=== PATIENT | male | born 1930 | race Caucasian/White ===

== ENCOUNTER 2017-09-09 11:41 | Inpatient (IN) | payer MEDICARE ==
[~2017-09-09] VITALS: Ht 162.6 cm; Wt 65.3 kg
[2017-09-09] MEDS ORDERED: METF500T27 PO (11:59)
[2017-09-09] MEDS ORDERED: ATOR40TA PO (12:00)
[2017-09-09] MEDS ORDERED: METO25TA35 PO (12:00)
[2017-09-09] MEDS ORDERED: ASPIRIN 81 MG TABLET CHEW PO ONE ×2 (12:30→14:30)
[2017-09-09] MEDS ORDERED: SODIUM CHLORIDE 0.9% 1,000ML IVBOLUS ONE (12:30)
[2017-09-09] MEDS ORDERED: SODIUM CHLORIDE FLUSH 10ML SYR IVF ONE (12:30)
[2017-09-09 12:47] LABS: BASOPHILS # (AUTO) 0.01 x10^3/uL (0-0.1); BASOPHILS % (AUTO) 0 % (0-1); EOSINOPHILS # (AUTO) 0.03 x10^3/uL (0-0.4); EOSINOPHILS % (AUTO) 1 % (1-7); LYMPHOCYTES % (AUTO) 33 % (22-44); MD NO; MEAN CORPUSCULAR HEMOGLOBIN 35.4 pg (27.5-34.5); MEAN CORPUSCULAR VOLUME 104.3 fL (81-97); MEAN PLATELET VOLUME 7.2 fL (7.4-10.4); MONOCYTES # (AUTO) 0.27 x10^3/uL (0.2-0.8); MONOCYTES % (AUTO) 7 % (2-9); NEUTROPHILS # (AUTO) 2.51 x10^3/uL (1.8-6.8); NEUTROPHILS % (AUTO) 59 % (42-75); PLATELET COUNT 174 x10^3/uL (130-400); RED BLOOD COUNT 2.95 x10^6/uL (4.38-5.82); RED CELL DISTRIBUTION WIDTH 14.1 % (9.4-14.8)
[2017-09-09 12:54] LABS: ALANINE AMINOTRANSFERASE 23 U/L (12-78); ALBUMIN 3.4 g/dL (3.4-5.0); ANION GAP 11 mmol/L (5-15); CALCIUM 8.7 mg/dL (8.5-10.1); CHLORIDE 100 mmol/L (98-107); CREATININE 1.46 mg/dL (0.7-1.3)
[2017-09-09 12:59] LABS: ALKALINE PHOSPHATASE 65 U/L (45-117); BILIRUBIN,TOTAL 0.9 mg/dL (0.2-1.0); TOTAL PROTEIN 7.2 g/dL (6.4-8.2)
[2017-09-09] MEDS ORDERED: ASPIRIN 81 MG TABLET CHEW ONE (13:08)
[2017-09-09] MEDS ORDERED: HEPARIN 5,000 UNITS/ML, 1ML ONE (13:32)
[2017-09-09] MEDS ORDERED: HEPARIN 25,000 UNITS/500ML PMX 500 ML ONE (13:32)
[2017-09-09] MEDS ORDERED: HEPARIN 5,000 UNITS/ML, 1ML IV ONE (14:00)
[2017-09-09] MEDS ORDERED: PLEASE ENTER ALLERGIES MC SCH (14:00)
[2017-09-09] MEDS ORDERED: HEPARIN 5,000 UNITS/ML, 1ML IV PRN (14:00)
[2017-09-09] MEDS ORDERED: HEPARIN 25,000 UNITS/500ML PMX 500 ML IV PRN (14:00)
[2017-09-09] MEDS ORDERED: morphine SULFATE 10 MG/ML, 1ML IV PRN (15:00)
[2017-09-09] MEDS ORDERED: NITROGLYCERIN SINGLE TAB 0.4 MG SL PRN (15:00)
[2017-09-09] MEDS ORDERED: ONDANSETRON 2MG/ML, 2ML IVP PRN (15:00)
[2017-09-09] MEDS ORDERED: NITROGLYCERIN 0.4 MG BOTTLE (25 TABS) SL PRN (15:00)
[2017-09-09] MEDS ORDERED: ACETAMINOPHEN 650 MG/20.3 ML UDC PO PRN (15:00)
[2017-09-09] MEDS ORDERED: PHARMACY MAY ADJ FOR RENAL FX MC PRN (15:00)
[2017-09-09] MEDS ORDERED: NITROGLYCERIN 0.4 MG/SPRAY SL PRN (15:00)
[2017-09-09 15:14] LABS: CHOLESTEROL, TOTAL 178 mg/dL (140-239); TRIGLYCERIDES 96 mg/dL (50-200); VLDL CHOLESTEROL 19 mg/dL (0-25)
[2017-09-09 15:40] LABS: CHOL/HDL RATIO 2.9; CREATINE KINASE, TOTAL 261 U/L (39-308); HDL CHOL % 35 % (26-37); HDL CHOLESTEROL (DIRECT) 62 mg/dL (40-60); LDL CHOLESTEROL,CALCULATED 97 mg/dL (54-169); LDL/HDL RATIO 1.6 (0.5-3.0)
[2017-09-09 15:48] VITALS: BP 135/64
[2017-09-09 15:51] LABS: HEMOGLOBIN A1C 5.4 % (4.2-6.3)
[2017-09-09 15:53] LABS: FOLATE LEVEL > 20.0 ng/mL (3.1-17.5)
[2017-09-09] MEDS: INSULIN LISPRO 100 UNITS/ML, PEN SQ-INSULIN SCH ×2 (16:00→20:40)
[2017-09-09 18:38] VITALS: BP 145/70
[2017-09-09] MEDS: SODIUM CHLORIDE 0.9% 1,000 ML IV SCH (20:08)
[2017-09-09] MEDS: SODIUM CHLORIDE FLUSH 10ML SYR IVF SCH (20:09)
[2017-09-09] MEDS: ATORVASTATIN 40 MG TABLET PO SCH (20:40)
[2017-09-09] MEDS ORDERED: MAGNESIUM SULFATE 2 GM in SODIUM CHLORIDE 0.9% 50 ML IV ONE (21:00)
[2017-09-09 21:01] LABS: MICROSCOPIC NOT IND
[2017-09-09 21:09] LABS: CULTURE INDICATED? NO
[2017-09-09] MEDS ORDERED: MAGNESIUM SULFATE PMX 2GM/50ML 50 ML IV ONE (21:30)
[2017-09-10 00:48] LABS: BASOPHILS # (AUTO) 0.02 x10^3/uL (0-0.1); BASOPHILS % (AUTO) 1 % (0-1); EOSINOPHILS % (AUTO) 2 % (1-7); LYMPHOCYTES # (AUTO) 2.38 x10^3/uL (1-3.4); LYMPHOCYTES % (AUTO) 55 % (22-44); MD NO; MEAN CORPUSCULAR HEMOGLOBIN 37.5 pg (27.5-34.5); MEAN CORPUSCULAR HGB CONC 34.9 g/dL (33.2-36.2); MEAN CORPUSCULAR VOLUME 107.2 fL (81-97); MEAN PLATELET VOLUME 7.2 fL (7.4-10.4); MONOCYTES # (AUTO) 0.39 x10^3/uL (0.2-0.8); MONOCYTES % (AUTO) 9 % (2-9); NEUTROPHILS # (AUTO) 1.49 x10^3/uL (1.8-6.8); NEUTROPHILS % (AUTO) 34 % (42-75); PLATELET COUNT 139 x10^3/uL (130-400); RED BLOOD COUNT 2.66 x10^6/uL (4.38-5.82); RED CELL DISTRIBUTION WIDTH 14.6 % (9.4-14.8)
[2017-09-10 01:06] LABS: ALBUMIN 2.8 g/dL (3.4-5.0); ANION GAP 9 mmol/L (5-15); CALCIUM 8.2 mg/dL (8.5-10.1); CHLORIDE 103 mmol/L (98-107)
[2017-09-10 01:10] LABS: ALANINE AMINOTRANSFERASE 21 U/L (12-78); ALKALINE PHOSPHATASE 53 U/L (45-117); BILIRUBIN,TOTAL 0.6 mg/dL (0.2-1.0); CREATININE 1.25 mg/dL (0.7-1.3); TOTAL PROTEIN 6.2 g/dL (6.4-8.2)
[2017-09-10 04:00] VITALS: BP 157/62
[2017-09-10] MEDS ORDERED: ASPIRIN 325 MG TABLET EC PO SCH (06:00)
[2017-09-10] MEDS: INSULIN LISPRO 100 UNITS/ML, PEN SQ-INSULIN SCH ×4 (07:00→20:25)
[2017-09-10] MEDS ORDERED: CYANOCOBALAMIN 1,000 MCG/ML, 1ML IM ONE (07:30)
[2017-09-10] MEDS ORDERED: METOPROLOL TARTRATE 25 MG TABLET PO SCH (09:00)
[2017-09-10] MEDS: SODIUM CHLORIDE 0.9% 1,000 ML IV SCH (10:11)
[2017-09-10] MEDS: CYANOCOBALAMIN 1,000 MCG TABLET PO SCH (10:14)
[2017-09-10] MEDS: SODIUM CHLORIDE FLUSH 10ML SYR IVF SCH ×2 (10:15→20:26)
[2017-09-10] MEDS: ATORVASTATIN 40 MG TABLET PO SCH (20:26)
[2017-09-11 04:00] VITALS: BP 160/56
[2017-09-11] MEDS: ASPIRIN 81 MG TABLET EC PO SCH (05:44)
[2017-09-11] MEDS: INSULIN LISPRO 100 UNITS/ML, PEN SQ-INSULIN SCH ×4 (07:00→21:00)
[2017-09-11 07:45] LABS: ALANINE AMINOTRANSFERASE 21 U/L (12-78); ALBUMIN 3.2 g/dL (3.4-5.0); ANION GAP 8 mmol/L (5-15); CALCIUM 8.5 mg/dL (8.5-10.1); CHLORIDE 105 mmol/L (98-107)
[2017-09-11 07:48] LABS: ALKALINE PHOSPHATASE 72 U/L (45-117); BILIRUBIN,TOTAL 0.7 mg/dL (0.2-1.0); CREATININE 0.93 mg/dL (0.7-1.3)
[2017-09-11] MEDS ORDERED: ATROPINE SYRINGE 0.1 MG/ML, 10ML ONE (08:22)
[2017-09-11 08:52] LABS: MEAN CORPUSCULAR HEMOGLOBIN 36.9 pg (27.5-34.5); MEAN CORPUSCULAR HGB CONC 34.3 g/dL (33.2-36.2); MEAN CORPUSCULAR VOLUME 107.7 fL (81-97); MEAN PLATELET VOLUME 7.8 fL (7.4-10.4); PLATELET COUNT 134 x10^3/uL (130-400); RED BLOOD COUNT 3.11 x10^6/uL (4.38-5.82); RED CELL DISTRIBUTION WIDTH 14.1 % (9.4-14.8)
[2017-09-11] MEDS: SODIUM CHLORIDE FLUSH 10ML SYR IVF SCH ×2 (09:00→21:00)
[2017-09-11 09:01] LABS: BASOPHILS # (AUTO) 0.01 x10^3/uL (0-0.1); BASOPHILS % (AUTO) 0 % (0-1); EOSINOPHILS # (AUTO) 0.09 x10^3/uL (0-0.4); EOSINOPHILS % (AUTO) 2 % (1-7); LYMPHOCYTES % (AUTO) 37 % (22-44); MD SCAN; MONOCYTES # (AUTO) 0.33 x10^3/uL (0.2-0.8); MONOCYTES % (AUTO) 7 % (2-9); NEUTROPHILS # (AUTO) 2.42 x10^3/uL (1.8-6.8); NEUTROPHILS % (AUTO) 53 % (42-75)
[2017-09-11] MEDS ORDERED: LISINOPRIL 10 MG TABLET PO SCH (10:30)
[2017-09-11] MEDS: CYANOCOBALAMIN 1,000 MCG TABLET PO SCH (11:03)
[2017-09-11] MEDS ORDERED: MAGNESIUM SULFATE PMX 2GM/50ML 50 ML IV ONE (12:30)
[2017-09-11] MEDS ORDERED: hydrALAzine 20 MG/ML, 1ML IV PRN ×2 (16:00→16:05)
[2017-09-11] MEDS ORDERED: ENALAPRILAT 1.25 MG/ML, 2ML ONE (16:20)
[2017-09-11] MEDS: ENALAPRILAT 1.25 MG/ML, 2ML IV PRN (16:29)
[2017-09-11] MEDS: MULTIVITAMIN 1 TABLET PO SCH (16:31)
[2017-09-11 19:29] VITALS: BP 187/73
[2017-09-11] MEDS ORDERED: SODIUM CHLORIDE 0.9%, 500ML IVBOLUS ONE (20:30)
[2017-09-11] MEDS: LISINOPRIL 20 MG TABLET PO SCH (21:00)
[2017-09-11] MEDS: ATORVASTATIN 40 MG TABLET PO SCH (21:32)
[2017-09-12 00:41] VITALS: BP 94/56
[2017-09-12] MEDS: ASPIRIN 81 MG TABLET EC PO SCH (05:58)
[2017-09-12] MEDS: INSULIN LISPRO 100 UNITS/ML, PEN SQ-INSULIN SCH ×4 (07:00→21:00)
[2017-09-12 07:19] VITALS: BP 139/69
[2017-09-12] MEDS: CYANOCOBALAMIN 1,000 MCG TABLET PO SCH (08:37)
[2017-09-12] MEDS: MULTIVITAMIN 1 TABLET PO SCH (08:37)
[2017-09-12] MEDS: SODIUM CHLORIDE FLUSH 10ML SYR IVF SCH ×2 (08:42→21:42)
[2017-09-12] MEDS: LISINOPRIL 20 MG TABLET PO SCH ×2 (09:00→21:00)
[2017-09-12] MEDS ORDERED: MAGNESIUM SULFATE PMX 2GM/50ML 50 ML IV ONE (12:00)
[2017-09-12 16:26] VITALS: BP 184/83
[2017-09-12 19:09] VITALS: BP 194/69
[2017-09-12] MEDS: ATORVASTATIN 40 MG TABLET PO SCH ×2 (21:00→21:42)
[2017-09-12 21:13] VITALS: BP 176/70
[2017-09-12] MEDS: ENALAPRILAT 1.25 MG/ML, 2ML IV PRN (21:42)
[2017-09-12 22:45] VITALS: BP 156/72
[2017-09-13 01:22] VITALS: BP 164/71
[2017-09-13 05:25] LABS: BASOPHILS # (AUTO) 0.02 x10^3/uL (0-0.1); BASOPHILS % (AUTO) 1 % (0-1); EOSINOPHILS # (AUTO) 0.09 x10^3/uL (0-0.4); EOSINOPHILS % (AUTO) 2 % (1-7); LYMPHOCYTES # (AUTO) 1.71 x10^3/uL (1-3.4); LYMPHOCYTES % (AUTO) 41 % (22-44); MD NO; MEAN CORPUSCULAR HEMOGLOBIN 37.1 pg (27.5-34.5); MEAN CORPUSCULAR HGB CONC 34.8 g/dL (33.2-36.2); MEAN CORPUSCULAR VOLUME 106.5 fL (81-97); MEAN PLATELET VOLUME 7.6 fL (7.4-10.4); MONOCYTES # (AUTO) 0.27 x10^3/uL (0.2-0.8); MONOCYTES % (AUTO) 6 % (2-9); NEUTROPHILS % (AUTO) 50 % (42-75); PLATELET COUNT 133 x10^3/uL (130-400); RED BLOOD COUNT 2.96 x10^6/uL (4.38-5.82); RED CELL DISTRIBUTION WIDTH 14.1 % (9.4-14.8)
[2017-09-13 05:38] LABS: ALBUMIN 2.8 g/dL (3.4-5.0); ANION GAP 6 mmol/L (5-15); CALCIUM 8.4 mg/dL (8.5-10.1); CHLORIDE 105 mmol/L (98-107)
[2017-09-13 05:42] LABS: ALANINE AMINOTRANSFERASE 19 U/L (12-78); ALKALINE PHOSPHATASE 68 U/L (45-117); BILIRUBIN,TOTAL 1.1 mg/dL (0.2-1.0); CREATININE 0.95 mg/dL (0.7-1.3); TOTAL PROTEIN 6.3 g/dL (6.4-8.2)
[2017-09-13] MEDS: ASPIRIN 81 MG TABLET EC PO SCH ×2 (06:35→20:02)
[2017-09-13] MEDS: INSULIN LISPRO 100 UNITS/ML, PEN SQ-INSULIN SCH ×4 (07:00→20:40)
[2017-09-13 07:40] VITALS: BP 160/74
[2017-09-13] MEDS ORDERED: RIVAROXABAN 15 MG TABLET PO SCH (08:30)
[2017-09-13] MEDS: MULTIVITAMIN 1 TABLET PO SCH (08:51)
[2017-09-13] MEDS: CYANOCOBALAMIN 1,000 MCG TABLET PO SCH (08:51)
[2017-09-13] MEDS: SODIUM CHLORIDE FLUSH 10ML SYR IVF SCH ×2 (08:55→20:40)
[2017-09-13] MEDS: LISINOPRIL 20 MG TABLET PO SCH ×2 (08:55→19:39)
[2017-09-13] MEDS ORDERED: BISACODYL 5 MG EC TABLET PO PRN (09:00)
[2017-09-13 13:00] VITALS: BP 166/74
[2017-09-13] MEDS ORDERED: CEFAZOLIN PMX 1GM/50ML 50 ML IVPB ONE (17:00)
[2017-09-13 18:40] VITALS: BP 161/76
[2017-09-14 00:40] VITALS: BP 147/83
[2017-09-14] MEDS: INSULIN LISPRO 100 UNITS/ML, PEN SQ-INSULIN SCH ×4 (07:00→21:00)
[2017-09-14] MEDS ORDERED: VANCOMYCIN PMX 1GM/200ML 200 ML IVPB SCH (07:30)
[2017-09-14] MEDS: CYANOCOBALAMIN 1,000 MCG TABLET PO SCH (07:59)
[2017-09-14] MEDS: MULTIVITAMIN 1 TABLET PO SCH (07:59)
[2017-09-14] MEDS: SODIUM CHLORIDE FLUSH 10ML SYR IVF SCH ×3 (08:01→21:51)
[2017-09-14 08:35] VITALS: BP 150/78
[2017-09-14] MEDS ORDERED: LIDOCAINE-MPF 2% ,5ML ONE ×2 (08:41→08:54)
[2017-09-14] MEDS ORDERED: FENTANYL PF 100 MCG/2ML ONE (08:41)
[2017-09-14] MEDS ORDERED: VANCOMYCIN 500 MG ONE (08:41)
[2017-09-14] MEDS ORDERED: MIDAZOLAM 1 MG/ML, 2ML ONE (08:41)
[2017-09-14] MEDS ORDERED: VANCOMYCIN PMX 1GM/200ML 200 ML ONE (08:42)
[2017-09-14] MEDS: LISINOPRIL 20 MG TABLET PO SCH ×2 (09:00→19:24)
[2017-09-14] MEDS ORDERED: LABETALOL 5MG/ML, 20ML ONE (10:18)
[2017-09-14] MEDS ORDERED: HOLD MEDICATION MC PRN (11:00)
[2017-09-14] MEDS ORDERED: ACETAMINOPHEN 325 MG TABLET PO PRN (11:00)
[2017-09-14 14:17] VITALS: BP 137/77
[2017-09-14] MEDS: ENALAPRILAT 1.25 MG/ML, 2ML IV PRN (17:43)
[2017-09-14 17:44] VITALS: BP 199/88
[2017-09-14 18:49] VITALS: BP 119/71
[2017-09-14 19:05] VITALS: BP 121/72
[2017-09-14] MEDS: ATORVASTATIN 40 MG TABLET PO SCH (21:51)
[2017-09-14] MEDS ORDERED: VANCOMYCIN PMX 1GM/200ML 200 ML IVPB ONE (22:00)
[2017-09-15 01:07] VITALS: BP 151/76
[2017-09-15] MEDS: INSULIN LISPRO 100 UNITS/ML, PEN SQ-INSULIN SCH ×3 (07:00→16:00)
[2017-09-15] MEDS: LISINOPRIL 20 MG TABLET PO SCH (08:12)
[2017-09-15] MEDS: CYANOCOBALAMIN 1,000 MCG TABLET PO SCH (08:12)
[2017-09-15] MEDS: MULTIVITAMIN 1 TABLET PO SCH (08:13)
[2017-09-15] MEDS: SODIUM CHLORIDE FLUSH 10ML SYR IVF SCH ×2 (08:15)
[2017-09-15] MEDS: ASPIRIN 81 MG TABLET EC PO SCH (08:15)
[2017-09-15] MEDS ORDERED: ASPI-621 PO (14:52)
[2017-09-15] MEDS ORDERED: LISI-170 PO (14:52)
[2017-09-15] MEDS ORDERED: MULT1TAB60 PO (14:52)
== END 2017-09-15 19:05 | DRG 242 ==
LOC: ED 12:30 → EDIP 13:18 → 5SO 15:29 → CCU 09-10 00:55 → 5SO 09-11 18:33
PROVIDERS: ADMIT Internal Medicine; ATTEND Family Medicine
PROC: 0T9B70Z Drainage of Bladder with Drainage Device, Via Natural or Artificial Opening (ICD-10-PCS; 2017-09-09)
PROC: 0JH606Z Insertion of Pacemaker, Dual Chamber into Chest Subcutaneous Tissue and Fascia, Open Approach (ICD-10-PCS; principal; 2017-09-14)
PROC: 02H63JZ Insertion of Pacemaker Lead into Right Atrium, Percutaneous Approach (ICD-10-PCS; 2017-09-14)
PROC: 02HK3JZ Insertion of Pacemaker Lead into Right Ventricle, Percutaneous Approach (ICD-10-PCS; 2017-09-14)
DX: I49.5 Sick sinus syndrome (principal); N17.0 Acute kidney failure with tubular necrosis; E87.1 Hypo-osmolality and hyponatremia; I24.8 Other forms of acute ischemic heart disease; R64 Cachexia; I44.0 Atrioventricular block, first degree; I45.10 Unspecified right bundle-branch block; I35.0 Nonrheumatic aortic (valve) stenosis; K02.9 Dental caries, unspecified; D53.9 Nutritional anemia, unspecified; D51.9 Vitamin B12 deficiency anemia, unspecified; E11.9 Type 2 diabetes mellitus without complications; E78.5 Hyperlipidemia, unspecified; R54 Age-related physical debility; E86.0 Dehydration; I34.0 Nonrheumatic mitral (valve) insufficiency; I10 Essential (primary) hypertension; J44.9 Chronic obstructive pulmonary disease, unspecified; K59.00 Constipation, unspecified; Z59.0 Homelessness; Z79.84 Long term (current) use of oral hypoglycemic drugs; Z87.820 Personal history of traumatic brain injury; Z87.891 Personal history of nicotine dependence; Z68.24 Body mass index [BMI] 24.0-24.9, adult; Z90.79 Acquired absence of other genital organ(s); Z93.6 Other artificial openings of urinary tract status
CPT/HCPCS: 33208; 36415; 70450; 71045; 74022; 80053; 80061; 81003; 82550; 82607; 82746; 82962; 83036; 83540; 83550; 83735; 83880; 84100; 84443; 84484; 85025; 85520; 87081; 93005; 93306; 96361; 96365; 96375; 99156; C1779; C1785; C1892; J1644; J2250; J3010; J3370; J3490; J0360; J3420; J3475; J7030; J7040